=== PATIENT | female | born 1970 | race Caucasian/White ===

== ENCOUNTER → 2016-12-24 | Outpatient (CLI) | payer BC | LOC: GMAJ 17:01 | PROVIDERS: ATTEND Family Medicine | DX: E53.8 Deficiency of other specified B group vitamins (principal); D50.9 Iron deficiency anemia, unspecified ==

== ENCOUNTER → 2017-02-25 | Outpatient (CLI) | payer BC | LOC: GMAJ 16:49 | PROVIDERS: ATTEND Family Medicine | DX: D64.9 Anemia, unspecified (principal); R31.21 Asymptomatic microscopic hematuria ==

== ENCOUNTER → 2017-03-17 | Outpatient (CLI) | payer OTHER | END | disposition home or self-care (01) | LOC: GMA 15:38 | PROVIDERS: ATTEND Nurse Practitioner Family | DX: N39.0 Urinary tract infection, site not specified (principal); M79.605 Pain in left leg ==

== ENCOUNTER → 2017-08-23 | Outpatient (CLI) | payer OTHER | END | disposition home or self-care (01) | LOC: GMAJ 14:33 | PROVIDERS: ATTEND Family Medicine | DX: D64.9 Anemia, unspecified (principal) ==

== ENCOUNTER → 2017-10-29 | Outpatient (CLI) | payer OTHER ==
--- NOTE | 2017-10-31 08:27 | CT ---
EXAM DESCRIPTION: Abdomen/Pelvis w/o Contrast: Computed Tomography. CLINICAL HISTORY: HEMATURIA COMPARISON: None. TECHNIQUE: Spiral-axial scans at 5.0 mm intervals through the abdomen and pelvis. Coronal and sagittal 2.0mm reconstructions. No IV or oral contrast. Total Exam DLP: 594.83 mGy-cm. This exam was performed according to our departmental CT dose-optimization program which includes automated exposure control, adjustment of the mA and/or kV according to patient size and/or use of iterative reconstruction technique; to reduce radiation dose to as low as reasonably achievable (ALARA). FINDINGS: Kidneys and Ureters: Minimal radiodense material in the bilateral inferior collecting systems but no definite stones. Low density in the upper pole, +20 HU. Nonenhancing 1.5 cm lesion seen on the prior examination with Hounsfield density +25 - 29 on that exam. No hydronephrosis or perinephric fluid. No radiodense stones in the ureters or periureteral edema. Pelvic Organs: Urinary bladder contracted with no radiodense stones. Uterus is retroflexed. Bilateral ovaries are noted. No fluid in the cul-de-sac. Lung and pleura bases: Negative. Liver, spleen, stomach, and adrenal glands: 1 cm enlargement in the left adrenal gland with Hounsfield density -15. Minimal hiatal hernia but no gastric distention. Other solid organs are negative. Pancreas, Gallbladder, Ducts: Gallbladder is visualized. Duct and pancreas unremarkable. Aorta: Minimal atherosclerotic calcification distally. Outer caliber unremarkable. Small Bowel: Minimal fluid and gas. Terminal Ileum/Cecum: Normal caliber TI and cecum. Appendix not seen. Normal fatty density. Colon: Diverticula descending colon with no complications. Mesentery: Small scattered lymph nodes in the lower abdomen and upper pelvis. No fatty stranding fascial thickening free air or free fluid. Spine and Bony Pelvis: Narrowing L5-S1 disc space with posterior spur bulging disc osteophyte complex narrowing the canal. Bilateral foraminal narrowing. Abdominal Wall/Back Soft Tissues: Bilateral fatty inguinal hernias not containing bowel. IMPRESSION: 1. No radiodense stones in the bilateral kidneys or hydronephrosis. No hydroureter or radiodense stones. Urinary bladder is contracted with no radiodense stones. Low-density lesion in the upper pole of the left kidney may represent a complicated cyst. +20 Hounsfield units on this exam and greater than 25 Hounsfield units on the prior exam. Consider further characterization by renal ultrasound. 2. Stable size of left adrenal adenoma since the prior study. 3. Stable bilateral inguinal hernias since the prior study. Mild diverticulosis without complications. L5-S1 disc space loss and spondylosis, and posterior bulging disc osteophyte complex narrowing the canal. Electronically signed by: Ronnell Miranda MD 10/31/2017 8:26 AM [facility]
== END ==
LOC: CT 07:40
PROVIDERS: ATTEND Family Medicine
DX: R31.21 Asymptomatic microscopic hematuria (principal); D35.02 Benign neoplasm of left adrenal gland; K40.20 Bilateral inguinal hernia, without obstruction or gangrene, not specified as recurrent

== ENCOUNTER → 2017-11-12 | Outpatient (CLI) | payer OTHER | LOC: GMAJ 11:36 | PROVIDERS: ATTEND Family Medicine | DX: E53.8 Deficiency of other specified B group vitamins (principal); D50.1 Sideropenic dysphagia; D50.8 Other iron deficiency anemias ==

== ENCOUNTER → 2018-04-06 | Outpatient (CLI) | payer OTHER | LOC: GMAJ 16:46 | PROVIDERS: ATTEND Family Medicine | DX: D64.9 Anemia, unspecified (principal) ==

== ENCOUNTER → 2018-06-10 | Outpatient (CLI) | payer OTHER ==
--- NOTE | 2018-06-10 12:13 | US ---
EXAM DESCRIPTION: Renal CLINICAL HISTORY: 48 years Female, RENAL CYST COMPARISON: CT abdomen and pelvis October 29, [address] abdomen and pelvis December 31,016 TECHNIQUE: Retroperitoneal sonogram was performed to evaluate the kidneys and bladder. FINDINGS: Right kidney Right renal length is 9.7 cm. Renal cortical thickness and echogenicity are normal. No shadowing stones. Hypoechoic area in the upper pole the left kidney is measured 2.[address] exams showed a cyst at the upper pole of the left kidney which measured 1.8 cm in diameter with a density of 25 Hounsfield units. The present sonographic appearance is indeterminate. This could be a complex cyst or mass. CT of the kidneys without and with contrast is recommended for comparison to previous studies. No hydronephrosis. Left kidney Left renal length is 9.3 cm. Renal cortical thickness and echogenicity are normal. No left renal mass, cyst or shadowing stone. No hydronephrosis. Urinary bladder No images of the urinary bladder were obtained. IMPRESSION: Normal sonographic appearance of the right kidney. Ill-defined hypoechoic lesion in the upper left kidney. Further evaluation is recommended. Electronically signed by: Juarez Miranda MD 06/10/2018 12:12 PM CDT
== END ==
LOC: US 07:00
PROVIDERS: ATTEND Family Medicine
DX: N28.1 Cyst of kidney, acquired (principal)

== ENCOUNTER → 2019-10-27 | Outpatient (CLI) | payer BC, OTHER ==
--- NOTE | 2019-10-29 14:26 | US ---
EXAM DESCRIPTION: Renal: Ultrasound. CLINICAL HISTORY: 49 years Female HEMATURIA RENAL MASS COMPARISON: None TECHNIQUE: Transcutaneous scanning: Two-dimensional and Doppler modes. FINDINGS: Right kidney measures 10.0 x 4.2 x 3.9 cm; mid-renal cortical thickness 14 mm .echogenicity. No hydronephrosis No echogenic stones. Smooth contour of the kidney with no perinephric fluid. Normal vascularity. Proximal ureter not seen. Left kidney measures 10.0 x 4.7 x 4.2 cm; mid-renal cortical thicknessnumber. Complex hypoechoic and hyperechoic mass upper pole cortex measuring 1.5 X 1.4 x 1.0 cm. Not vascular. No hydronephrosis. No echogenic stones. Smooth contour of the kidney with no perinephric fluid. Normal vascularity.. Proximal ureter not visualized. Urinary bladder was visualized. Volume 38.6 mL. Ureteral jet in the bladder seen bilaterally on color Doppler. No voiding. Abdominal aorta: 1.7 cm proximally to 1.2 cm at the bifurcation IMPRESSION: 1. Complex avascular mass in the cortex of the upper pole of the left kidney. Consider CT scan of the kidneys without and with IV contrast. 2. Left kidney unremarkable. Bilateral color Doppler ureteral jets in the bladder. Normal caliber of the abdominal aorta. Electronically signed by: Ronnell Miranda MD 10/29/2019 2:25 PM [employer]
== END ==
LOC: US 08:51
PROVIDERS: ATTEND Urology
DX: N28.89 Other specified disorders of kidney and ureter (principal); R31.9 Hematuria, unspecified

== ENCOUNTER 2020-01-13 23:46 | Emergency (ER) | payer BC ==
--- NOTE | 2020-01-14 00:13 | ED.PDOC ---
History of Present Illness - General Chief Complaint: Laceration Stated Complaint: hand laceration Time Seen by Provider: 01/14/20 00:10 Additional Information: Patient is a 49-year-old female who presents to the ED with chief complaint of right hand laceration. Patient was using a knife and the knife slipped and lacerated her right palm. Patient has no other injuries and indicates she has normal use of her hand with no decrement in sensation or motor. Patient is otherwise asymptomatic. - History of Present Illness Allergies/Adverse Reactions: Allergies Penicillins Allergy (Verified 01/14/20 00:11) Review of Systems - Review of Systems Constitutional: States: no symptoms reported EENTM: States: no symptoms reported Respiratory: States: no symptoms reported Cardiology: States: no symptoms reported Gastrointestinal/Abdominal: States: no symptoms reported Musculoskeletal: States: see HPI All other Systems: Reviewed and Negative Past Medical History (General) - Patient Medical History Hx Seizures: No Hx Stroke: No Hx Dementia: No Hx Asthma: Yes Hx of COPD: No Hx Cardiac Disorders: Yes - IN Hx Congestive Heart Failure: No Hx Pacemaker: No Hx Hypertension: Yes Hx Thyroid Disease: No Hx Diabetes: No Hx Gastroesophageal Reflux: No Hx Renal Disease: No Hx Cancer: No Hx of HIV: No Hx Hepatitis C: No Hx MRSA: No Surgical History: appendectomy - Vaccination History Hx Tetanus, Diphtheria Vaccination: No Hx Influenza Vaccination: No Hx Pneumococcal Vaccination: No Immunizations Up to Date: No - Social History Hx Tobacco Use: No Hx Chewing Tobacco Use: No Hx Alcohol Use: Yes - occasional Hx Substance Use: No Hx Substance Use Treatment: No Hx Depression: No Feels Threatened In Home Enviroment: No Feels Threatened In a Relationship: No Hx Physical Abuse: No Hx Emotional Abuse: No Hx Suspected Abuse: No - Activities of Daily Living Hospice Agency (if applicable):: None - Female History Patient is a Female of Child Bearing Age (10 -59 yrs old): Yes Patient : No Family Medical History - Family History Mother Family History: No Known Physical Exam - Physical Exam General Appearance: Alert, Comfortable, No apparent distress, Well Developed, Well Nourished Eyes, Ears, Nose, Throat Exam: normal ENT inspection Neck: normal inspection Cardiovascular/Respiratory: no respiratory distress Hand Exam: laceration - 9 mm transverse laceration to the right palm approximately midway between the wrist crease and the fifth PIP joint. No active bleeding. Normal sensation to light touch all distributions distally. Full range of motion hand and fingers. Progress - Progress Progress: 01/14/20 00:14 Patient with very small superficial laceration to the right palm. The site is not under tension and came together well with Dermabond. Dermabond instructions discussed with patient and she will follow-up with her PCP as needed. Patient happy with plan. Procedures - Laceration/Wound Repair Right Hand Wound's Depth, Shape: superficial Wound Explored: clean Betadine Prep?: Yes Wound Repaired With: dermabond Departure - Departure Clinical Impression: Hand laceration Qualifiers: Encounter type: sequela Foreign body presence: without foreign body Laterality: right Qualified Code(s): S61.411S - Laceration without foreign body of right hand, sequela Disposition: Discharge to Home or Self Care Condition: Good Departure Forms: ED Discharge - Pt. Copy, Patient Portal Self Enrollment Instructions: DI for Laceration Repair With Dermabond Referrals: Leland Lord MD [Primary Care Provider] - 1-2 Weeks
[2020-01-14] MEDS ORDERED: TETANUS-DIPHTHERIA TOXOIDS (TD) SYG IM ONE (00:19)
[2020-01-14 01:13] VITALS: BP 189/111; TEMP 97.8; O2SAT 95
== END 2020-01-14 00:55 | disposition home or self-care (01) ==
LOC: ER 23:46
DX: S61.411A Laceration without foreign body of right hand, initial encounter (principal); I10 Essential (primary) hypertension; W26.0XXA Contact with knife, initial encounter; Y92.9 Unspecified place or not applicable